=== PATIENT | female | born 1955 | race Caucasian/White ===

== ENCOUNTER → 2018-10-29 | Outpatient (CLI) | payer OTHER, MEDICARE ==
[~2018-10-29] MED LIST: CLONAZEPAM 1 MG1 M1 PO; COLACE100 MG PO; COUMADIN 2 MG TA2 M1 PO; CYMBALTA30 MG PO; DILTIAZEM 24HR240 M2 PO; FISH OIL 1,001000 M2 PO; GLUCOSAMINE CH1 EAC7 PO; HYDROCHLOROTHIA25 M2 PO; KLONOPIN0.5 MG PO; LIPITOR10 MG PO; METFORMIN HCL500 MG PO; NORCO 5-325 TA1 EACH PO; PROBIOTIC1 EAC1 PO; PROTONIX40 M1 PO; SENNA LAX8.6 MG PO; TOPROL XL50 MG PO; TRAMADOL 50 MG50 MG PO; TYLENOL325 MG PO; VITAMIN D1000 UNI1 PO; ZANAFLEX4 MG PO
== END ==
LOC: NUC 10-25 11:27
DX: M85.88 Other specified disorders of bone density and structure, other site (principal); Z78.0 Asymptomatic menopausal state